=== PATIENT | male | born 1975 | race Caucasian/White ===

== ENCOUNTER 2016-11-11 18:03 | Emergency (ER) | payer BC, OTHER ==
[~2016-11-11] VITALS: Ht 182.9 cm; Wt 95.3 kg
[~2016-11-11 18:03] MED LIST: CYCL10TA9 PO; NAPR500T PO; PRD20T PO; TRAM50TA2 PO
[2016-11-11] MEDS ORDERED: LISI-552 (18:46)
[2016-11-11 19:27] LABS: BILIRUBIN,URINE NEGATIVE (NEGATIVE); KETONES,URINE NEGATIVE (NEGATIVE); LEUKOCYTE ESTERASE ,URINE NEGATIVE (NEGATIVE); NITRITE,URINE NEGATIVE (NEGATIVE); PH,URINE 5 (5-9); PROTEIN,URINE NEGATIVE (NEGATIVE); UROBILINOGEN,URINE NORMAL (NORMAL)
[2016-11-11] MEDS ORDERED: KETOROLAC 30 MG/ML VIAL IVP STA (19:32)
[2016-11-11] MEDS ORDERED: NS IV 1000 ML 1,000 ML IV ONE (19:32)
[2016-11-11 19:36] LABS: BASOPHILS # (AUTO) 0.1 10^3/uL (0.0-0.1); BASOPHILS % (AUTO) 1 % (0-10); EOSINOPHILS # (AUTO) 0.4 10^3/uL (0.0-0.3); EOSINOPHILS % (AUTO) 4 % (0-10); LYMPHOCYTES % (AUTO) 34 % (12-44); MEAN CORPUSCULAR HEMOGLOBIN 29 PG (25-34); MEAN CORPUSCULAR HGB CONC 34 G/DL (32-36); MEAN CORPUSCULAR VOLUME 84 FL (80-99); MEAN PLATELET VOLUME 9.6 FL (7.4-10.4); MONOCYTES # (AUTO) 1.3 X 10^3 (0.0-1.0); MONOCYTES % (AUTO) 11 % (0-12); NEUTROPHILS # (AUTO) 5.7 X 10^3 (1.8-7.8); NEUTROPHILS % (AUTO) 50 % (42-75); PLATELET COUNT 453 10^3/uL (130-400); RED BLOOD COUNT 5.06 10^6/uL (4.35-5.85); RED CELL DISTRIBUTION WIDTH 13.8 % (10.0-14.5); WHITE BLOOD COUNT 11.5 10^3/uL (4.3-11.0)
--- NOTE | 2016-11-11 19:41 | ED GU-Male ---
General Chief Complaint: -Male Stated Complaint: KIDNEY STONE/UNABLE TO URINATE Nursing Triage Note: AMB TO ROOM REPORTS FOR 1 YEAR HAS HAD A KIDNEY STONE. LAST 2 DAYS HAS HAD DIFFCULITY WITH URINATION. Source: patient, spouse Exam Limitations: no limitations History of Present Illness Time seen by provider: 19:20 Initial Comments 41-year-old male patient presents to the emergency department with complaints of one year onset of a kidney stone. States the last 2 days he has noticed increasing difficulty with urination. Reports earlier this evening was unable to urinate and felt like something was obstructed at the end of his "member". States pain is almost completely resolved at this time. Reports pain is now a 3 /10. Timing/Duration: other (2 day onset (kidney stone x1 yr)) Severity/Quality: aching, stabbing Location: urethral Radiation: none Activities at Onset: none Prior Genitourinary Problems: similar symptoms Modifying Factors: Worsens With Urinating Allergies and Home Medications Allergies Coded Allergies: Penicillins (Unverified Allergy, Unknown, 04/11/16) Home Medications Lisinopril 20 Mg Tablet, #30 (Reported) Constitutional: No chills, No dizziness, No fever, No malaise, No weakness Respiratory: No cough, No short of breath Cardiovascular: No chest pain, No syncope Gastrointestinal: No abdominal pain, No constipation, No diarrhea, No nausea, No vomiting Genitourinary: see HPI, denies discharge, dysuria, denies frequency, denies flank pain, denies hematuria, pain, other (hesitancy.) Musculoskeletal: No back pain Skin: no symptoms reported Psychiatric/Neurological: No Symptoms Reported All Other Systemes Reviewed Negative Unless Noted: Yes (Negative excepted noted.) Past Ltiaihi-Jxtiyt-Unsybl Hx Patient Social History Alcohol Use: Denies Use Recreational Drug Use: No Smoking Status: Current Everyday Smoker Type Used: Cigarettes Recent Foreign Travel: No Contact w/Someone Who Travel: No Recent Infectious Disease Expo: No Recent Hopitalizations: No Seasonal Allergies Seasonal Allergies: No Surgeries HX Surgeries: No Respiratory Hx Respiratory Disorders: No Cardiovascular Hx Cardiac Disorders: No Cardiac Disorders: Hypertension Neurological Hx Neurological Disorders: No Reproductive System Hx Reproductive Disorders: No Sexually Transmitted Disease: No HIV/AIDS: No Genitourinary Hx Genitourinary Disorders: Yes Genitourinary Disorders: Kidney Stones ((x1 year).) Gastrointestinal Hx Gastrointestinal Disorders: No Musculoskeletal Hx Musculoskeletal Disorders: Yes (chronic shoulder and neck pain) Endocrine Hx Endocrine Disorders: No HEENT HX ENT Disorders: No Cancer Hx Cancer: No Psychosocial Hx Psychiatric Problems: No Integumentary HX Skin/Integumentary Disorder: No Blood Transfusions Hx Blood Disorders: No Adverse Reaction to a Blood Tr: No Reviewed Nursing Assessment Reviewed/Agree w Nursing PMH: Yes Family Medical History Significant Family History: No Pertinent Family Hx Physical Exam Vital Signs Vital Sign - Last 12Hours 11/11/16 18:29 Temp 98.9 Pulse 100 Resp 18 B/P (MAP) 132/102 Capillary Refill : Less Than 3 Seconds General Appearance: WD/WN, no apparent distress HEENT: PERRL/EOMI, pharynx normal Neck: supple, normal inspection Cardiovascular: regular rate, rhythm, no murmur Respiratory: lungs clear, normal breath sounds, no respiratory distress Gastrointestinal: normal bowel sounds, non tender, soft, no organomegaly, No distended Back: normal inspection, no CVA tenderness Extremities: no pedal edema, normal capillary refill Neurologic/Psychiatric: alert, normal mood/affect, oriented x 3 Skin: normal color, warm/dry Progress/Results/Core Measures Results/Orders Lab Results Laboratory Tests Test 11/11/16 19:10 11/11/16 19:17 Range/Units White Blood Count 11.5 H 4.3-11.0 10^3/uL Red Blood Count 5.06 4.35-5.85 10^6/uL Hemoglobin 14.6 13.3-17.7 G/DL Hematocrit 43 40-54 % Mean Corpuscular Volume 84 80-99 FL Mean Corpuscular Hemoglobin 29 25-34 PG Mean Corpuscular Hemoglobin Concent 34 32-36 G/DL Red Cell Distribution Width 13.8 10.0-14.5 % Platelet Count 453 H 130-400 10^3/uL Mean Platelet Volume 9.6 7.4-10.4 FL Neutrophils (%) (Auto) 50 42-75 % Lymphocytes (%) (Auto) 34 12-44 % Monocytes (%) (Auto) 11 0-12 % Eosinophils (%) (Auto) 4 0-10 % Basophils (%) (Auto) 1 0-10 % Neutrophils # (Auto) 5.7 1.8-7.8 X 10^3 Lymphocytes # (Auto) 4.0 1.0-4.0 X 10^3 Monocytes # (Auto) 1.3 H 0.0-1.0 X 10^3 Eosinophils # (Auto) 0.4 H 0.0-0.3 10^3/uL Basophils # (Auto) 0.1 0.0-0.1 10^3/uL Sodium Level 139 135-145 MMOL/L Potassium Level 4.3 3.6-5.0 MMOL/L Chloride Level 105 98-107 MMOL/L Carbon Dioxide Level 23 21-32 MMOL/L Anion Gap 11 5-14 MMOL/L Blood Urea Nitrogen 13 7-18 MG/DL Creatinine 1.00 0.60-1.30 MG/DL Estimat Glomerular Filtration Rate > 60 BUN/Creatinine Ratio 13 Glucose Level 114 H 70-105 MG/DL Calcium Level 9.5 8.5-10.1 MG/DL Total Bilirubin 0.3 0.1-1.0 MG/DL Aspartate Amino Transf (AST/SGOT) 23 5-34 U/L Alanine Aminotransferase (ALT/SGPT) 35 0-55 U/L Alkaline Phosphatase 119 40-136 U/L Total Protein 7.6 6.4-8.2 G/DL Albumin 4.1 3.2-4.5 G/DL Urine Color YELLOW Urine Clarity CLEAR Urine pH 5 5-9 Urine Specific [place] 1.025 H 1.016-1.022 Urine Protein NEGATIVE NEGATIVE Urine Glucose (UA) NEGATIVE NEGATIVE Urine Ketones NEGATIVE NEGATIVE Urine Nitrite NEGATIVE NEGATIVE Urine Bilirubin NEGATIVE NEGATIVE Urine Urobilinogen NORMAL NORMAL MG/DL Urine Leukocyte Esterase NEGATIVE NEGATIVE Urine RBC (Auto) NEGATIVE NEGATIVE Urine RBC NONE /HPF Urine WBC RARE /HPF Urine Crystals NONE /LPF Urine Bacteria NEGATIVE /HPF Urine Casts NONE /LPF Urine Mucus NEGATIVE /LPF Urine Other FEW SPERM H /HPF Urine Culture Indicated NO My Orders Orders - MAUREEN LIM Abdomen, Flat & Upright/Decub (11/11/16 19:32) Ns Iv 1000 Ml (Sodium Chloride 0.9%) (11/11/16 19:32) Ketorolac Injection (Toradol Injection) (11/11/16 19:32) Ct Abd/Pelvis Wo(Kidney Stone) (11/11/16 20:22) Medications Given in ED Current Medications Medications Dose Ordered Sig/Steve Route Start Time Stop Time Status Last Admin Dose Admin Sodium Chloride 1,000 ml @ 0 mls/hr Q0M ONCE IV 11/11/16 19:32 11/11/16 19:34 DC 11/11/16 19:55 1,000 MLS/HR Vital Signs/I&O Vital Sign - Last 12Hours 11/11/16 18:29 Temp 98.9 Pulse 100 Resp 18 B/P (MAP) 132/102 Blood Pressure Mean: 112 Diagnostic Imaging Diagonstic Imaging: Xray Plain Films/CT/US/NM/MRI: abdomen Comments FINDINGS: There is moderate amount of stool present throughout the colon. No evidence of bowel obstruction. No pathologic calcifications are seen. No organomegaly. No bony abnormalities. IMPRESSION: 1. Moderate amount of stool throughout the colon. 2. No renal or ureteral calculi demonstrated. Dictated on workstation # [id number] Reviewed: Reviewed by Me (radiology report reviewed by me.) Diagonstic Imaging: CT Plain Films/CT/US/NM/MRI: abdomen, pelvis Comments FINDINGS: Lung bases are clear. Liver appears normal. Gallbladder and bile ducts are normal. Pancreas and spleen appear normal. Adrenal glands are not enlarged. Kidneys show no evidence of obstruction or calculi. Renal outlines are smooth. No perinephric fluid. The stomach and small bowel are nondistended. There is a moderate amount of stool present throughout the colon from the cecum to the rectum. Appendix is visualized and normal. There is no evidence of diverticulitis with a few diverticula in the descending and sigmoid colon. Bladder is nondistended. No pelvic masses. No free air or free fluid. Small indirect inguinal hernia noted on the left. IMPRESSION: 1. No acute intra- abdominal findings. 2. Findings are consistent with moderate constipation. Dictated on workstation # [id number] Reviewed: Reviewed by Me (radiology report reviewed by me) Departure Impression Impression: Primary Impression: Dysuria Additional Impressions: Urinary hesitancy Constipation Qualified Codes: K59.00 - Constipation, unspecified Disposition: HOME, SELF-CARE Condition: Improved Departure-Patient Inst. Decision time for Depature: 21:19 Referrals: NO,LOCAL PHYSICIAN (PCP) Primary Care Physician JONATHAN TALLEY APRN (Family) Primary Care Physician Patient Instructions: Constipation, Adult (DC), Eczema (Atopic Dermatitis) (DC) Add. Discharge Instructions: All discharge instructions reviewed with patient and/or family. Voiced understanding. Medications as instructed. Tylenol extra strength over-the- counter as directed for pain. Ibuprofen 800 mg by mouth every 8 hours as needed for pain. Drink plenty of fluids. Follow-up with your primary care physician for recheck and possible need for referral to a urologist. Call for appointment time tomorrow morning. Return to the emergency department for worsened symptoms or any other concerns. Scripts Ciprofloxacin HCl (Ciprofloxacin HCl) 500 Mg Tablet 500 MG PO BID, #14 TAB 0 Refills Prov: MAUREEN LIM 11/11/16 Phenazopyridine HCl (Pyridium) 200 Mg Tablet 1 TAB PO Q8H Y for PAIN-MODERATE, #30 TAB 0 Refills Prov: MAUREEN LIM 11/11/16 Tamsulosin HCl (Flomax) 0.4 Mg Cap 0.4 MG PO DAILY, #14 CAP 0 Refills Prov: MAUREEN LIM 11/11/16 MAUREEN LIM Nov 11, 2016 19:41
[2016-11-11 19:44] LABS: ALANINE AMINOTRANSFERASE 35 U/L (0-55); ALBUMIN 4.1 G/DL (3.2-4.5); ANION GAP 11 MMOL/L (5-14); ASPARTATE AMINO TRANSFERASE 23 U/L (5-34); BILIRUBIN,TOTAL 0.3 MG/DL (0.1-1.0); BLOOD UREA NITROGEN 13 MG/DL (7-18); BUN/CREATININE RATIO 13; CALCIUM 9.5 MG/DL (8.5-10.1); CARBON DIOXIDE 23 MMOL/L (21-32); CHLORIDE 105 MMOL/L (98-107); GFR ESTIMATED > 60; GLUCOSE 114 MG/DL (70-105); POTASSIUM 4.3 MMOL/L (3.6-5.0); SODIUM 139 MMOL/L (135-145); TOTAL PROTEIN 7.6 G/DL (6.4-8.2)
[2016-11-11 19:45] LABS: WBC,URINE RARE /HPF
--- NOTE | 2016-11-11 20:01 | Diagnostic Imaging Report ---
INDICATION: Right flank pain. History of kidney stone. FINDINGS: There is moderate amount of stool present throughout the colon. No evidence of bowel obstruction. No pathologic calcifications are seen. No organomegaly. No bony abnormalities. IMPRESSION: 1. Moderate amount of stool throughout the colon. 2. No renal or ureteral calculi demonstrated. Dictated by: Dictated on workstation # [id number]
--- NOTE | 2016-11-11 21:05 | Diagnostic Imaging Report ---
PROCEDURE: CT urinary tract, rule out kidney stone. TECHNIQUE: Multiple contiguous axial images were obtained through the abdomen and pelvis without the use of intravenous contrast. INDICATION: Right lower quadrant pain. Vomiting. FINDINGS: Lung bases are clear. Liver appears normal. Gallbladder and bile ducts are normal. Pancreas and spleen appear normal. Adrenal glands are not enlarged. Kidneys show no evidence of obstruction or calculi. Renal outlines are smooth. No perinephric fluid. The stomach and small bowel are nondistended. There is a moderate amount of stool present throughout the colon from the cecum to the rectum. Appendix is visualized and normal. There is no evidence of diverticulitis with a few diverticula in the descending and sigmoid colon. Bladder is nondistended. No pelvic masses. No free air or free fluid. Small indirect inguinal hernia noted on the left. IMPRESSION: 1. No acute intra-abdominal findings. 2. Findings are consistent with moderate constipation. Dictated by: Dictated on workstation # [id number]
[2016-11-11] MEDS ORDERED: PHEN-640 PO (21:22)
[2016-11-11] MEDS ORDERED: TAMS0.4C98 PO (21:22)
[2016-11-11] MEDS ORDERED: CIPR500T4 PO (21:22)
[2016-11-11] MEDS ORDERED: LEVOFLOXACIN 500 MG TAB (LEVAQUIN) PO ONE (21:30)
[2016-11-11] MEDS ORDERED: PHENAZOPYRIDINE 100 MG (PYRIDIUM) TABLET PO ONE (21:30)
[2016-11-11] MEDS ORDERED: ALFUZOSIN HCL 10 MG TAB (UROXATRAL) PO ONE (21:30)
[2016-11-11 21:35] VITALS: BP 145/94
== END 2016-11-11 21:35 | disposition home or self-care (01) ==
LOC: EDUNIT# 18:03 → ER 18:05
DX: R30.0 Dysuria (principal); R39.11 Hesitancy of micturition; K59.00 Constipation, unspecified; I10 Essential (primary) hypertension; F17.210 Nicotine dependence, cigarettes, uncomplicated; Z87.442 Personal history of urinary calculi
CPT/HCPCS: 36415; 74020; 74176; 80053; 81000; 85025

== ENCOUNTER 2017-05-09 18:16 | Emergency (ER) | payer BC ==
[~2017-05-09] VITALS: Ht 182.9 cm; Wt 95.3 kg
[~2017-05-09 18:16] MED LIST changes: +CIPR500T4 PO; +LISI-552; +PHEN-640 PO; +TAMS0.4C98 PO
[2017-05-09] MEDS ORDERED: HYDROcodone/APAP 5 MG/325 MG (LORTAB) TAB PO STA (20:40)
[2017-05-09] MEDS ORDERED: TETANUS,DIPTH,PERTUSS P/F (BOOSTRIX) 0.5 ML VIAL IM STA (20:42)
--- NOTE | 2017-05-09 21:45 | Diagnostic Imaging Report ---
INDICATION: Pain status post injury COMPARISON: None. FINDINGS: Three views of the right wrist demonstrate no acute fracture or dislocation. There are no focal osseous lesions. No avascular necrosis is seen. The visualized soft tissue structures are unremarkable. The pronator fat pad is not displaced. There are no radio opaque foreign bodies. IMPRESSION: 1. No acute fracture or dislocation in the right wrist. Dictated by: Dictated on workstation # [id number]
--- NOTE | 2017-05-09 21:45 | Diagnostic Imaging Report ---
INDICATION: Pain status post injury. COMPARISON: None. EXAMINATION: Three views of the right hand were obtained. FINDINGS: No fractures, dislocations, or other acute bony abnormalities identified. Joint spaces are well maintained throughout. The soft tissues appear unremarkable. No radiopaque foreign bodies are identified. IMPRESSION: No acute fractures or dislocations of the right hand. Dictated by: Dictated on workstation # [id number]
--- NOTE | 2017-05-09 21:52 | ED Upper Extremity ---
General Chief Complaint: Upper Extremity Stated Complaint: RIGHT HAND SWELLING;INJ Nursing Triage Note: pt reports he hit his hand working on a hot water heater last night. reports pain et swelling worsening today. Nursing Sepsis Screen: No Definite Risk History of Present Illness Time seen by provider: 20:30 Initial Comments 41-year-old male, reports he was working on his hot water heater yesterday when his hand slipped and he hit it onto a metal pipe. He has pain over the dorsum of the right hand. He is right-hand dominant. He denies any history of previous right hand injuries. He has not received a tetanus vaccine for many years. Onset: yesterday Pain/Injury Location: right hand Method of Injury: direct blow Modifying Factors: Improves With Cold Therapy, Improves With Rest Allergies and Home Medications Allergies Coded Allergies: Penicillins (Unverified Allergy, Unknown, 04/11/16) Home Medications Ciprofloxacin HCl 500 Mg Tablet, 500 MG PO BID, #14 Ref 0 Prescribed by: MAUREEN LIM on 11/11/162121 Lisinopril 20 Mg Tablet, #30 (Reported) Phenazopyridine HCl 200 Mg Tablet, 1 TAB PO Q8H PRN for PAIN-MODERATE, #30 Ref 0 Prescribed by: MAUREEN LIM on 11/11/162121 Tamsulosin HCl 0.4 Mg Cap, 0.4 MG PO DAILY, #14 Ref 0 Prescribed by: MAUREEN LIM on 11/11/162121 Constitutional: no symptoms reported, see HPI Musculoskeletal: see HPI, joint pain (right hand and wrist), joint swelling, muscle pain, muscle stiffness, muscle cramps Skin: see HPI, other (superficial abrasion dorsum right hand) Past Otokksg-Ooomnv-Zinpqf Hx Patient Social History Alcohol Use: Denies Use Recreational Drug Use: No Smoking Status: Current Everyday Smoker Type Used: Cigarettes 2nd Hand Smoke Exposure: Yes Recent Foreign Travel: No Contact w/Someone Who Travel: No Recent Infectious Disease Expo: No Recent Hopitalizations: No Physical Abuse: No Sexual Abuse: No Seasonal Allergies Seasonal Allergies: No Surgeries History of Surgeries: No Respiratory History of Respiratory Disorde: No Cardiovascular History of Cardiac Disorders: Yes Cardiac Disorders: Hypertension Neurological History of Neurological Disord: No Reproductive System Hx Reproductive Disorders: No Sexually Transmitted Disease: No HIV/AIDS: No Genitourinary Genitourinary Disorders: Kidney Stones Gastrointestinal History of Gastrointestinal Di: No Musculoskeletal History of Musculoskeletal Dis: Yes (chronic shoulder and neck pain) Endocrine History of Endocrine Disorders: No Cancer History of Cancer: No Psychosocial History of Psychiatric Problem: No Suicide Risk Score: 0 Integumentary History of Skin or Integumenta: No Blood Transfusions History of Blood Disorders: No Adverse Reaction to a Blood Tr: No Reviewed Nursing Assessment Reviewed/Agree w Nursing PMH: Yes Family Medical History Significant Family History: No Pertinent Family Hx Physical Exam Vital Signs Vital Sign - Last 12Hours 05/09/17 18:48 Temp 97.8 Pulse 92 Resp 14 B/P (MAP) 151/63 (92) Capillary Refill : Less Than 3 Seconds General Appearance: WD/WN, no apparent distress Cardiovascular: normal peripheral pulses, regular rate, rhythm Respiratory: chest non-tender, lungs clear Hand: Right, abrasions (superficial), bone tenderness (distal radius , carpals and metacarpals), limited ROM, soft tissue tenderness, swelling Neurologic/Psychiatric: no motor/sensory deficits, alert, normal mood/affect, oriented x 3 Skin: normal color, warm/dry Progress/Results/Core Measures Results/Orders My Orders Orders - ANKUR WOLF Hydrocodone/Apap 5/325 Tablet (Lortab 5 (05/09/17 20:40) Wrist, Right, 3 Views Or More (05/09/17 20:40) Hand, Right, 3 Views (05/09/17 20:40) Dipht,Pertuss(Acell),Tet Adult (Boostrix (05/09/17 20:42) Vital Signs/I&O Vital Sign - Last 12Hours 05/09/17 18:48 Temp 97.8 Pulse 92 Resp 14 B/P (MAP) 151/63 (92) Blood Pressure Mean: 92 Diagnostic Imaging Diagonstic Imaging: Xray Plain Films/CT/US/NM/MRI: hand Comments NAME: KAJAL CHEN MED REC#: [id number] PT STATUS: REG ER : 1975 PHYSICIAN: ANKUR WOLF ADMIT DATE: 05/09/17/ER Draft Date of Exam:05/09/17 HAND, RIGHT, 3 VIEWS INDICATION: Pain status post injury. COMPARISON: None. EXAMINATION: Three views of the right hand were obtained. FINDINGS: No fractures, dislocations, or other acute bony abnormalities identified. Joint spaces are well maintained throughout. The soft tissues appear unremarkable. No radiopaque foreign bodies are identified. IMPRESSION: No acute fractures or dislocations of the right hand. Dictated on workstation # [id number] Dict: 05/09/172140 Trans: 05/09/172143 [facility] [id number] Interpreted by: LUIS DIETZ MD Electronically signed by: Reviewed: Reviewed by Me Diagonstic Imaging: Xray Plain Films/CT/US/NM/MRI: other Comments [place] NAME: KAJAL CHEN MED REC#: [id number] PT STATUS: REG ER : 1975 PHYSICIAN: ANKUR WOLF ADMIT DATE: 05/09/17/ER Draft Date of Exam:05/09/17 WRIST, RIGHT, 3 VIEWS OR MORE INDICATION: Pain status post injury COMPARISON: None. FINDINGS: Three views of the right wrist demonstrate no acute fracture or dislocation. There are no focal osseous lesions. No avascular necrosis is seen. The visualized soft tissue structures are unremarkable. The pronator fat pad is not displaced. There are no radio opaque foreign bodies. IMPRESSION: 1. No acute fracture or dislocation in the right wrist. Dictated on workstation # [id number] Dict: 05/09/172140 Trans: 05/09/172143 [id number] Interpreted by: LUIS DIETZ MD Electronically signed by: Reviewed: Reviewed by Me Departure Impression Impression: Primary Impression: Contusion of right hand Qualified Codes: S60.221A - Contusion of right hand, initial encounter Disposition: 01 HOME, SELF-CARE Condition: Stable Departure-Patient Inst. Decision time for Depature: 21:40 Referrals: NO,LOCAL PHYSICIAN (PCP) Primary Care Physician JONATHAN TALLEY APRN (Family) Primary Care Physician Patient Instructions: Contusion (DC) Add. Discharge Instructions: Ice to right hand, 20 minutes every 2 hours. Zack wrap as needed. Progress activity as tolerated. Alternate every 4 hours between ibuprofen 600 mg and Tylenol 650 mg. Turned to emergency department if symptoms worsen or new problems. Follow up with primary care provider in 2-3 days if symptoms are not improving. All discharge instructions reviewed with patient and/or family. Voiced understanding. ANKUR WOLF May 09, 2017 21:52
[2017-05-09 21:56] VITALS: BP 151/63
== END 2017-05-09 21:56 | disposition home or self-care (01) ==
LOC: EDUNIT# 18:16 → ER 18:17
DX: S60.221A Contusion of right hand, initial encounter (principal); I10 Essential (primary) hypertension; F17.210 Nicotine dependence, cigarettes, uncomplicated; Z87.442 Personal history of urinary calculi; W22.09XA Striking against other stationary object, initial encounter
CPT/HCPCS: 73110; 73130; 90715; 99282; 99283

== ENCOUNTER → 2018-04-01 | Outpatient (CLI) | payer BC ==
[~2018-04-01] MED LIST changes: +NAPR-1071 PO; -NAPR500T PO
--- NOTE | 2018-04-01 15:06 | Diagnostic Imaging Report ---
PROCEDURE: MR imaging of the brain without contrast. TECHNIQUE: Multiplanar, multisequence MR imaging of the brain was performed without contrast. INDICATION: Left leg weakness and left foot drop. COMPARISON: No prior studies are available for comparison. FINDINGS: The ventricular size and sulcal pattern are stable. No sulcal effacement or midline shift is seen. No diffusion restriction is identified to suggest acute ischemia. The normal expected flow-voids within the carotid siphons are seen. The corpus callosum is unremarkable. The sella and parasellar structures are unremarkable. No hemorrhage is seen. IMPRESSION: Unremarkable noncontrast MRI of the brain. Dictated by: Dictated on workstation # [id number]
--- NOTE | 2018-04-01 16:04 | Diagnostic Imaging Report ---
EXAMINATION: Magnetic resonance imaging of the left knee without intravenous contrast DATE: April 01, 2018. COMPARISON: None. INDICATION: 42-year-old male, left leg weakness and foot drop. TECHNIQUE: Multiplanar, multisequence non contrast enhanced MR imaging was accomplished. FINDINGS: MENISCI: The medial meniscus is intact. The lateral meniscus is intact. LIGAMENTS AND TENDONS: The anterior and posterior cruciate ligaments are intact. The medial collateral ligament is intact. The iliotibial band, mid third lateral capsular ligament, fibular collateral ligament, biceps femoris tendon and conjoined tendon are intact. The quadriceps tendon and patella ligament are intact. JOINT: The articular cartilage surfaces are intact. There is no knee joint effusion, prominent synovitis, or intra-articular body. BONE: There is unremarkable bone marrow signal. Specifically, negative for fracture, osteomyelitis, osteonecrosis, or marrow replacing process. BURSAE AND SOFT TISSUES: There is no Stokes's cyst. There is nonspecific prepatellar subcutaneous edema. There is normal intramuscular signal. There is no fatty muscle atrophy. IMPRESSION: 1. Intact medial and lateral meniscus. 2. Intact anterior and posterior cruciate ligaments. Additional ligaments and tendons are intact. 3. Intact articular cartilage. No knee joint effusion. 4. Normal intramuscular signal within the included [id number] of imaging and no fatty muscle atrophy. 5. Grossly unremarkable MRI of the left knee. Dictated by: Dictated on workstation # [id number]
== END ==
LOC: RAD 13:10
PROVIDERS: ATTEND Psychiatry & Neurology Neurology
DX: M21.372 Foot drop, left foot (principal)
CPT/HCPCS: 70551; 73721